=== PATIENT | female | born 1980 | race Caucasian/White ===

== ENCOUNTER 2025-01-05 16:59 | Emergency (ER) | payer BC, SELFPAY ==
--- OUTSIDE RECORDS SUMMARY | 2025-01-05 17:01 | XMS_ITS | Clinical Summary ---
Author Organization [employer] Address [address] [place] [id number] Care Team Providers Care [employer] Molder Name Role Phone Minh Zamarripa MD Unavailable [phone] Yris Foster DO Primary Care Provider [phone] Allergies No known active allergies Medications albuterol (PROVENTIL) 0.083 % neb solutionIndicati ons:Moderate persistent asthma without complication (HC),Post-viral reactive airway disease (HC) Inhale 3 mL (2.5 mg) via a nebulizer every 4 hours if needed for Cough 1st choice, Shortness of Breath 1st choice or Wheezing 1st choice. Dispense 1box 1 mL 1 09/28/20 21 Active ipratropium (ATROVENT NASAL) 42 mcg (0.06 %) nasal spray USE 2 SPRAYS IN EACH NOSTRIL TWICE DAILY DIRECTED 04/10/20 23 Active albuterol HFA (PRO-AIR; VENTOLIN; PROVENTIL) 90 mcg/actuation inhalerIndicatio ns:Moderate persistent asthma without complication (HC) Inhale 2 Puffs by mouth every 4 hours if needed for Shortness of Breath 1st choice or Wheezing 2nd choice. For breathing; use with spacer to get a full dose 1 Each 1 01/02/20 24 Active inhalational spacing deviceIndication s:Exacerbation of asthma, unspecified asthma severity, unspecified whether persistent (HC) For home use. Use with albuterol 1 Each 01/02/20 24 Active ascorbic acid/vitamin E/biotin (HAIR, SKIN, NAILS WITH BIOTIN ORAL) Take by mouth. Active metFORMIN (GLUCOPHAGE XR) 500 mg Extended-Release tabletIndication s:Obesity, Class II, BMI 35-39.9 Take 2 Tablets (1,000 mg) by mouth once daily. 180 Tablet 3 09/10/20 24 Active lisdexamfetamine (Vyvanse) 10 mg capsuleIndicatio ns:Attention deficit hyperactivity disorder (ADHD), unspecified ADHD type Take 1 Capsule (10 mg) by mouth once daily. 30 Capsule 09/16/20 24 Active ketoconazole 2 % creamIndications :Yeast dermatitis Apply topically to affected area(s) two times daily. Use until resolved. Then can use once a week for prevention if desired 60 g 3 09/16/20 24 Active levothyroxine 50 mcg tabletIndication s:Hypothyroidism (acquired) TAKE 1 TABLET(50 MCG) BY MOUTH BEFORE BREAKFAST 90 Tablet 1 01/06/20 25 Active escitalopram oxalate 20 mg tabletIndication s:Anxiety Take 1 Tablet (20 mg) by mouth once daily in the morning. 90 Tablet 1 01/06/20 25 Active levothyroxine (SYNTHROID) 50 mcg tabletIndication s:Hypothyroidism (acquired) Take 1 Tablet (50 mcg) by mouth once daily. 90 Tablet 3 09/10/20 24 2024 Discontinued escitalopram oxalate (LEXAPRO) 20 mg tabletIndication s:Anxiety Take 1 Tablet (20 mg) by mouth once daily in the morning. 90 Tablet 3 09/10/20 24 2024 Discontinued(R eorder (E-cancel not sent)) Hospital, Clinic, or Other Facility Administered Medication Ordered Dose Route Frequency Start Date End Date Status levonorgestrel (MIRENA) 20 mcg/24 hours (8 yrs) 52 mg intrauterine device (IUD) 1 DeviceIndications:Encounter for IUD removal and reinsertion 1 Device IU Q 8 YEARS 08/14/2023 Active Active Problems Problem Noted Date Diagnosed Date High-risk human papillomavir us (HPV) DNA detected in cervical specimen, not type 16 or 18 07/15/2023 Overview (09/18/2024): 07/2023 NIL/HPV+, HPV 16/18 negative 08/2024 NIL/HPV+, HPV 16/18 negative Plan: Colposcopy Raynaud's syndrome 06/04/2023 Overview (06/04/2023): Right index Even got an ulcer All [facility] had to offer was a nerve surgery to stop her from feeling the pain Attention deficit hyperactiv ity disorder (ADHD), predominantly hyperactive type 05/15/2019 Depression, major, single episode, moderate 12/14 Hypothyroidism 12/19/2017 Chronic lower back pain 08/31/2015 CT positive 08/31/2015 Moderate persistent asthma without complication 05/10/2015 Resolved Problems Problem Noted Date Diagnosed Date Resolved Date Undifferentiated connective tissue disease 08/31/2015 08/10/2024 Encounters Date Type Department Care Team Description 01/05/2025 Refill [facility] Nurse Triage Yris Foster DO Refill Request (Escitalopram ) 01/05/2025 Nurse Triage [facility] [address] [place] [address] Yris Foster DO Back Pain 01/05/2025 Refill [facility] [address] [place] [address] Yris Foster DO Refill Request (Levothyroxine) from Last 3 Months Immunizations Immunization Administration Dates Next Due COVID-19 vaccine ([employer] 30mcg/0.3mL) 12YO+ BIVALENT PF, MDV 12/20/2022 COVID-19 vaccine ([employer] 30mcg/0.3mL) PF, MDV 10/21/2021,01/29/2021,01/08/2021 Hepatitis A, Unspecified 02/01/2007 Hepatitis B, Unspecified 10/15/2005 Influenza Virus, Unspecified 01/18/2007 Influenza, IIV4 07/02/2023 MMR 02/14/1993,03/06/1983 Pneumococcal Conj 20-valent (Prevnar 20) 023 Td (Age >=7 Years) 01/18/2007 Td, Preservative Free (age >= 7 Years) 3 Typhoid (oral) 02/01/2007 Family History Medical History Relation Name Comments Diabetes Maternal Grandfather Arthritis Maternal Grandmother Other Maternal Grandmother argelia ons Other Mother Lupus Cancer-breast No Family History Cancer-ovarian No Family History Relation Name Status Comments Maternal Grandfather Maternal Grandmother Mother Social History Tobacco Use Types Packs/Day Years Used Date Smoking Tobacco: Never Smokeless Tobacco: Never Tobacco Cessation:Counseling Given: Not Answered Alcohol Use Standard Drinks/Week Comments Yes 2 (1 standard drink = 0.6 oz pur e alcohol) PHQ-2 Answer Date Recorded PHQ-2 TOTAL SCORE 3 09/10/2024 Social Connections Answer Date Recorded Do you often feel lonely or isolated from those around you? 0 08/07/2024 Alcohol Use Answer Date Recorded How often do you have a drink containing alcohol ? 2 12/20/2022 How many drinks containing a lcohol do you have on a typical day when you are drinking? 0 12/20/2022 How often do you have five or more drinks on one occasion? 0 12/20/2022 Financial Resource Strain Answer Date R ecorded Difficulty of Paying Living Expenses 3 08/07/2024 Difficulty of Paying Living Expenses Not on file 08/07/2024 Food Insecurity Answer Date Recorded Do you worry your food will run out before you are able to buy more? 1 08/07/2024 Transportation Needs Answer Date Record ed Does lack of transportation keep you from medica l appointments? 1 08/07/2024 Does lack of transportation keep you from work, meetings or getting things that you need? 1 08/07/2024 Housing Stability Answer Date Recorded What is your housing situation today? 1 08/07/2024 Utilities Answer Date Recorded Do you have trouble paying f or utilities (for example, heat, electricity, water, phone)? 1 08/07/2024 Comments No Sex and Gender Information Value Date Recorded Sex Assigned at Not on file Legal Sex Female 10:48 AM CDT Gender Identity Not on file Sexual Orientation Not on file Occupation Industry Job Start Date Job End Date Not on file Not on file Not on file Not on file Obstetrics History Last Filed Vital Signs Vital Sign Reading Time Taken Comments Blood Pressure 121/72 10/01/2024 2:05 PM TRIAL ATTORNEY Pulse 85 10/01/2024 2:05 PM TRIAL ATTORNEY Temperature 36.8 C (98.3 F) 12/13/2018 9:39 AM TRIAL ATTORNEY Respiratory Rate 16 08/31/2015 1:50 PM TRIAL ATTORNEY Oxygen Saturation 98% 09/16/2024 2:53 PM TRIAL ATTORNEY Inhaled Oxygen Concentration - - Weight 122.4 kg (269 lb 12.8 oz) 09/16/2024 2:53 PM TRIAL ATTORNEY Height 166.4 cm (5' 5.5) 09/10/2024 10 :55 AM TRIAL ATTORNEY Body Mass Index 44.21 09/10/2024 10:55 AM TRIAL ATTORNEY Plan of Treatment Upcoming Encounters Date Type Department Care Team (Late st Contact Info) Description 01/06/2025 9:40 AM CDT Office Visit [facility] [address] [place] [address] Kali Hagen MD [address] [place] [address] Health Maintenance Due Date Last Done Comments Tdap 02/27/1992 COVID-19 vaccine series ( season) 2024 12/20/2022, 10/21/2021, 01/29/2021, Additional history exists Influenza Vaccine (#1) 2024 07/02/2023, 2006 BMI (ht and wt on same day) for age 18+ 09/10/2025 09/10/2024, 08/14/2023, 05/16/2019, Additional history exists Depression screening for age 12+ 09/10/2025 09/10/2024, 08/14/2023, 12/05/2022, Additional history exists Pap test for age 21-65 10/01/2025 (Verified in Care Everywhere or Patient Record), 09/10/2024, 09/10/2024, Additional history exists Tetanus booster 12/20/2032 12/20/2022, 01/18/2007 Pneumococcal series for age 6-49 Completed 12/21/19 23 HIV for age 15-65 Completed 08/24/2023, , 05/25/2015 Hepatitis C screening for ag e 18-79 Completed 08/24/2023, 12/26/2022, 05/25/2015 Procedures Procedure Name Priority Date/Time Associated Diagnosis Comments HPV HIGH RISK Routine 09/10/2024 12:53 PM TRIAL ATTORNEY Cervical cancer screening ANTI HIV 1/2 Routine 08/24/2023 2:16 PM TRIAL ATTORNEY Screen for STD (sexually transmitted disease) ANTI HCV Routine 08/24/2023 2:16 PM TRIAL ATTORNEY Screen for STD (sexually transmitted disease) from Last 3 Months or Most Recently Relevant to Health Maintenance Results * (ABNORMAL) HPV HIGH RISK (09/10/2024 12:53 PM TRIAL ATTORNEY) TYPE 16 Negative Negative 09/15/2024 11:19 AM TRIAL ATTORNEY [facility] TYPE 18 Negative Negative 09/15/2024 11:19 AM TRIAL ATTORNEY [facility] OTHER HIGH RISK TYPES Positive(A) Negative 09/15/2024 11:19 AM TRIAL ATTORNEY [facility] Other (Cervical) Non-Blood / Unknown 09/10/2024 12:53 PM TRIAL ATTORNEY 09/12/2024 10:14 AM TRIAL ATTORNEY Narrative [facility] - 09/15/2024 11:19 AM TRIAL ATTORNEY Specimen is positive for the DNA of any one of, or combination of, the following high risk HPV types: 31, 33, 35, 39, 45, 51, 52, 56, 58, 59, 66, 68. HPV types 16 and 18 DNA were undetectable or below the pre-set threshold. Methodology: Mani Ivelisse 4800 HPV Test Yris Foster DO MICROBIOLOGY Final Resu lt [facility] [address] [place] [address], * ANTI HCV (08/24/2023 2:16 PM TRIAL ATTORNEY) HEPATITIS C ANTIBODY Non-Reacti ve Non-React mercedes 08/25/2023 4:37 AM TRIAL ATTORNEY [facility] Comment:Please note, per www .CDC.gov: If a patient is known to be at high risk of HCV infection, or is symptomatic, and the physician's suspicion of HCV infection is high, HCV RNA testing is often employed and is of diagnostic value, even after an initial negative anti-HCV test result. Blood BLOOD SPECIMEN / Unknown Butterfly / Unknown 08/24/2023 2:16 PM TRIAL ATTORNEY 08/24/2023 2:17 PM TRIAL ATTORNEY Yris Foster DO SEND OUTS Final Resu lt Performing Organization Address City/[facility]/ZIP Co de Phone Number [facility] [address] [place] [id number], [place] * ANTI HIV 1/2 (08/24/2023 2:16 PM TRIAL ATTORNEY) HIV-1/HIV-2 SCREEN Non-Reacti ve Non-Reacti ve 08/24/2023 9:24 PM TRIAL ATTORNEY [facility] Comment:HIV-1 p24 and HIV-1/ HIV-2 Ab Not Detected. Blood BLOOD SPECIMEN / Unknown Butterfly / Unknown 08/24/2023 2:16 PM TRIAL ATTORNEY 08/24/2023 2:17 PM TRIAL ATTORNEY Yris Foster DO SEND OUTS Final Resu lt Performing Organization Address [facility]/ZIP Co de Phone Number [facility] [address] [place] [address], from Last 3 Months or Most Recently Relevant to Health Maintenance Insurance [id number] [place] [address] [facility] Care Teams Automobile Carpets Molder Relationship Specialty Start Date End Date Yris Foster DO [address] [place] [address] PCP - General Family Practice 02/07/22 Minh Zamarripa MD [address] [facility] [address] [place] [address] Rheumatology Rheumatology 05/25/15
[2025-01-05 17:05] VITALS: BP 133/81; PULSE 80; RESP 16; TEMP 36.3; O2SAT 96; BMI 45.1
--- NOTE | 2025-01-05 17:13 | ED.GENADULT ---
HPI - General Adult General Date Seen: 01/05/25 Chief complaint: Back Injury/Pain Stated complaint: Back pain Time Seen by Provider: 01/05/25 17:13 History of Present Illness HPI narrative: 44-year-old female presenting to the ER today with concern for back pain. We do not have any previous medical records for her here in the [facility]. There are records the [employer] system. According to those records she has a past medical history of Raynaud's disease, positive CT, asthma, depression, ADHD, hypothyroidism, and chronic low back pain. Medication list from [employer] includes Albuterol Lexapro Ipratropium Levothyroxine Vyvanse Metformin [facility] she had phone calls today to the clinic requesting refills of her escitalopram and levothyroxine. She also called [facility] triage line requesting an appointment for her low back pain. [facility] triage nurse for back pain and she was instructed to come to the emergency department. History from the patient is that about 3 3 weeks ago she was at the [employer]. She had to hold her head and neck and back and very uncomfortable position for a while 1st while they were chamfer pulling her hair in a special sink and 2nd doing work on her eyebrows. She knew she was in an uncomfortable position but she held it anyway while she was at the [employer]. Since then she has been having pain in a couple of different locations. Her primary area of pain isn't located in her lower lumbar spine and across her posterior pelvis. It is a bit worse on the left than on the right. It sounds like it has been present pretty much every day since she went to the [employer] but is a began getting worse. Sometimes it the pain also radiates like an electric shock down her left buttock and down to her left lateral lower leg. Sometimes it also radiates down into her right buttock but not all the way down to her lower right leg. Sometimes she feels like her legs get weak. She also notes that sometimes she feels like she is having trouble with urination where she has to urinate frequently and sometimes she is incontinent of urine. Incontinence has been a previous problem for her but has been worse for the past couple of weeks. Bowel movements have been normal. No fevers. She has had occasional back pains in the past but has never had to go to the doctor. No previous lumbar spine surgeries. She also has sometimes electric shock like pain in the back of her neck and the back of her scalp. No fevers or chills. No chest pain. No trouble breathing. Related Data Home Medications ?Medication ?Instructions ?Recorded ?Confirmed escitalopram oxalate 20 mg tablet 20 mg PO DAILY 01/05/25 01/05/25 levothyroxine 50 mcg tablet 50 mcg PO DAILY 01/05/25 01/05/25 metformin 500 mg tablet,extended 500 mg PO BID 01/05/25 01/05/25 release 24 hr Previous Rx's ?Medication ?Instructions ?Recorded cyclobenzaprine 10 mg tablet 10 mg PO TID PRN muscle spasm #10 01/05/25 tabs hydrocodone 5 mg-acetaminophen 325 1 - 2 tab PO Q4-6H PRN pain #10 01/05/25 mg tablet tabs methylprednisolone 4 mg tablets in See Rx Instructions PO .COMPLEX 01/05/25 a dose pack (Medrol (Zeb)) #21 ea ondansetron 4 mg disintegrating 4 mg PO Q8H PRN nausea and 01/05/25 tablet vomiting #10 tabs Allergies Allergy/AdvReac Type Severity Reaction Status Date / Time No Known Drug Allergies Allergy Verified 01/05/25 17:09 [facility] Social History Smoking Status: Never smoker How often do you have a drink containing alcohol: never AUDIT-C Alcohol total score: 0 Non-prescribed substance use: denies use service: No Exam Narrative: Exam Narrative: Constitutional: Appears well-developed. Heavyset.. Alert. Conversant, very polite Non toxic. HENT: Head: Atraumatic. Nose: Nose normal. Mouth/Throat: Oral mucosa is clear and moist. no trismus. Pharynx normal. Eyes: Conjunctivae normal. EOM normal. Pupils equal, round, and reactive to light. No scleral icterus. Neck: Normal range of motion. Neck supple. No tracheal deviation present. Posteriorly she has no midline step-off. No point tenderness. Cardiovascular: Normal rate, regular rhythm. No gallop. No friction rub. No murmur heard. Symmetric radial artery pulses Pulmonary/Chest: Effort normal. No stridor. No respiratory distress. No wheezes. No rales. No rhonchi . No tenderness. Abdominal: Soft. Bowel sounds normal. No distension. No mass. No tenderness. No rebound. No guarding. Musculoskeletal: Inspection of her thoracic and lumbar spine is normal. She is endorsing fairly diffuse lumbar spine pain, more in the lower lumbar in span than the upper. There is no point tenderness or step-off. No crepitus. No redness. No bruising. No rash. Pelvis is stable. RUE: Normal range of motion. No tenderness. No deformity LUE: Normal range of motion. No tenderness. No deformity RLE: Normal range of motion. No edema. No tenderness. No deformity LLE: Normal range of motion. No edema. No tenderness. No deformity Neurological: Alert and oriented to person, place, and time. Normal strength. CN II-VII intact. No sensory deficit. GCS eye subscore is 4. GCS verbal subscore is 5. GCS motor subscore is 6. Normal coordination Sensory: Normal light touch sensation bilaterally on the anteromedial thigh (L3), medial malleolus (L4), dorsal first web space (L5), lateral malleolus (S1). Strength: 5/5 strength hip flexors (L3) on the right and left 5/5 strength in the quadriceps (L4) on the right and left 5/5 strength in the tibialis anterior 5/5 strength in the EHL (L5) on the right and left 5/5 strength in the gastrocnemius (S1) on the right and left 5/5 strength in the hamstring on the right and left DTRs: symmetric in the patella (2/4) Negative straight leg raise bilaterally. Skin: Skin is warm and dry. No rash noted. No pallor. Normal capillary refill. Psychiatric: Normal mood. Normal affect. Very polite. She is frustrated about being sent to the ER by the [employer] phone triage line. She just wanted to get an appointment with her doctor's office for her back. Const: Vital Signs, click to edit/add: Vital Signs - 24 hr 01/05/25 17:05 Temperature 97.3 F L Pulse Rate [Pulse Oximeter] 80 Respiratory Rate 16 Blood Pressure [Ri ght Upper Arm] 133/81 Pulse Oximetry 96 Oxygen Delivery Me thod Room Air Course Vital Signs Vital signs: Initial Vital Signs Temperature 97.3 F L 01/05/25 17:05 Temperature Source Temporal Artery Scan 01/05/25 17:05 Pulse Rate 80 01/05/25 17:05 Respiratory Rate 16 01/05/25 17:05 Blood Pressure 133/81 01/05/25 17:05 Blood Pressure Mean 98 01/05/25 17:05 Blood Pressure Position Sitting 01/05/25 17:05 Pulse Oximetry 96 01/05/25 17:05 Oxygen Delivery Method Room Air 01/05/25 17:05 Vital Signs Temperature 97.3 F L 01/05/25 17:05 Pulse Rate 80 01/05/25 17:05 Respiratory Rate 16 01/05/25 17:05 Blood Pressure 133/81 01/05/25 17:05 Pulse Oximetry 96 01/05/25 17:05 Oxygen Delivery Method Room Air 01/05/25 17:05 Temperature 97.3 F L 01/05/25 17:05 Pulse Rate 80 01/05/25 17:05 Respiratory Rate 16 01/05/25 17:05 Blood Pressure 133/81 01/05/25 17:05 Pulse Oximetry 96 01/05/25 17:05 Oxygen Delivery Method Room Air 01/05/25 17:05 Medical Decision Making MDM Narrative Medical decision making narrative: This patient presented with back pain. Broad differential considered. The patient did not sustain any trauma, therefore x-rays are not necessary due to the low likelihood of fracture or subluxation. She did report on the phone to the [facility] triage system that she was having some urinary difficulty. On my exam she has no focal neurologic deficits. She has intact sensation in both legs. I did not check rectal tone formally but she does denies any stool incontinence. She is able to urinate normally and has a normal postvoid residual bladder volume of 30 mL. No red flag symptoms to suggest CT and/or MRI is indicated at this point. The patient has not had a fever, saddle/perineal anesthesia, bilateral foot numbness, or bowel or bladder dysfunction. There is no clinical evidence of cauda equina syndrome, discitis, spinal/epidural space hematoma or epidural abscess. MRI is not available here in my ER tonight and at this point I do not think that there is clinical grounds that mandates emergent transfer to another ER for immediate imaging tonight. With her reported episodes of pain radiating down her left lateral leg am suspicious for a probable left L5 or S1 lumbar radiculopathy. I do think since she has had symptoms ongoing for the past few weeks, if she is not improving in the next few days she may need MRI.. Urinalysis was obtained and is abnormal only for leukocyte esterase. In discussed with the patient we will await urine culture before we initiate any empiric antibiotics. The patient will be discharged with pain medications to use as directed. Ice or heat to the back and stretching exercises. No heavy lifting, bending or twisting. Return if increasing pain, numbness, weakness, or bowel or bladder dysfunction. The patient was advised to schedule follow-up with their primary doctor within 2-3 days to re-assess symptoms. Return precautions reviewed and questions answered. Prescriptions for Whiteside, Flexeril, for symptomatic relief. Prescription for Medrol Dosepak. Opiate precautions reviewed. Also Zofran for to use if needed for nausea. Patient is already schedule an appointment with her PCP Clinic and [facility] tomorrow. Lab Data Labs: Lab Results 01/05/25 Range/Units 17:48 Urine Color Yellow (Yellow) Urine Appearance Clear (Clear) Urine pH 6.0 (5.0-8.5) Ur Specific [place] 1.015 (1.000-1.030) Urine Protein Negative (Negative) Urine Glucose (UA) Negative (Negative) Urine Ketones 1+ A (Negative) Urine Blood 1+ A (Negative) Urine Nitrite Negative (Negative) Urine Bilirubin Negative (Negative) Urine Urobilinogen 0.2 (0.2-1.0) Ur Leukocyte Esterase 1+ A (Negative) Urine RBC 0-2 (0-2) Urine WBC 2-5 (0-5) Ur Squamous Epith Cells Few (None-Few) Urine Bacteria Few A (None) Urine HCG, Qual Negative (Negative) Discharge Plan Discharge Clinical Impression: Left lumbar radiculopathy, Acute neck pain Patient Disposition: Home, Self-Care Condition: Stable Instructions: Acute Low Back Pain (ED), Lumbar Radiculopathy (ED), Acute Neck Pain (ED) Additional Instructions: As we discussed, please follow-up with your doctors at the [facility] clinic tomorrow for a checkup. Your doctors Nirav may be able to help you arrange an outpatient MRI, as needed. Please come back to the ER right away if you have worsening symptoms especially worsening weakness or numbness in your legs, further disturbance of bowel or bladder function, high fever, numbness or weakness down your arms. Use the prescription muscle relaxers and pain killers as needed but be careful because they can cause dizziness, drowsiness, and can be addictive. Start on the oral steroid to help treat your back. The steroid might help reduce swelling if you have a bulging disc and this could help her symptoms get better. Prescriptions: New cyclobenzaprine 10 mg tablet 10 mg PO TID PRN (Reason: muscle spasm) Qty: 10 0RF hydrocodone-acetaminophen 5-325 mg tablet 1 - 2 tab PO Q4-6H PRN (Reason: pain) Qty: 10 0RF ondansetron 4 mg tablet,disintegrating 4 mg PO Q8H PRN (Reason: nausea and vomiting) Qty: 10 0RF methylprednisolone [Medrol (Zeb)] 4 mg tablets,dose pack See Rx Instructions .ROUTE .COMPLEX Qty: 21 0RF Rx Instructions: for 6 days No Action levothyroxine 50 mcg tablet 50 mcg PO DAILY metformin 500 mg tablet extended release 24 hr 500 mg PO BID escitalopram oxalate 20 mg tablet 20 mg PO DAILY Follow Up/Referrals: Provider,Not a Local [Primary Care Provider] - Stand Alone Forms: [employer] Info Instructions
--- OUTSIDE RECORDS SUMMARY | 2025-01-05 17:59 | XMS_ITS | Clinical Summary ---
Author Organization [facility] Address [address] [place] [id number] Care Team Providers Care Political Researcher Name Role Phone Minh Zamarripa MD Unavailable [phone] Yris Foster DO Primary Care Provider [phone] Allergies No known active allergies Medications albuterol [...] Right index Even got an ulcer All [place] had to offer was a nerve surgery [...] Type Department Care Team Description 01/05/2025 Refill [facility] Nurse Triage Yris Foster DO Refill Request (Escitalopram ) 01/05/2025 Nurse Triage [facility] [address] [place] [address] Yris Foster DO Back Pain 01/05/2025 Refill [facility] [address] [place] [address] Yris Foster DO Refill Request (Levothyroxine) from Last 3 Months Immunizations Immunization Administration Dates Next Due COVID-19 vaccine (Million-2-1-Bio NTech 30mcg/0.3mL) 12YO+ BIVALENT PF, MDV 12/20/2022 COVID-19 vaccine (Million-2-1-Bio NTech 30mcg/0.3mL) PF, MDV 10/21/2021,01/29/2021,01/08/2021 Hepatitis A, [...] Comments Blood Pressure 121/72 10/01/2024 2:05 PM [employer] Pulse 85 10/01/2024 2:05 PM [employer] Temperature 36.8 C (98.3 F) 12/13/2018 9:39 AM [employer] Respiratory Rate 16 08/31/2015 1:50 PM [employer] Oxygen Saturation 98% 09/16/2024 2:53 PM [employer] Inhaled Oxygen Concentration - - Weight 122.4 kg (269 lb 12.8 oz) 09/16/2024 2:53 PM [employer] Height 166.4 cm (5' 5.5) 09/10/2024 10 :55 AM [employer] Body Mass Index 44.21 09/10/2024 10:55 AM [employer] Plan of Treatment Upcoming Encounters Date Type Department Care Team (Late st Contact Info) Description 01/06/2025 9:40 AM CDT Office Visit [facility] [address] [place] [address] Kali Hagen MD [address] [place] [address] Health Maintenance Due Date Last Done Comments [...] HPV HIGH RISK Routine 09/10/2024 12:53 PM [employer] Cervical cancer screening ANTI HIV 1/2 Routine 08/24/2023 2:16 PM [employer] Screen for STD (sexually transmitted disease) ANTI HCV Routine 08/24/2023 2:16 PM [employer] Screen for STD (sexually transmitted disease) from Last 3 Months or Most Recently Relevant to Health Maintenance Results * (ABNORMAL) HPV HIGH RISK (09/10/2024 12:53 PM [employer]) TYPE 16 Negative Negative 09/15/2024 11:19 AM [employer] [facility] TYPE 18 Negative Negative 09/15/2024 11:19 AM [employer] [facility] OTHER HIGH RISK TYPES Positive(A) Negative 09/15/2024 11:19 AM [employer] [facility] Other (Cervical) Non-Blood / Unknown 09/10/2024 12:53 PM [employer] 09/12/2024 10:14 AM [employer] Narrative [facility] - 09/15/2024 11:19 AM [employer] Specimen is positive for the DNA of any one of, or combination of, the following high risk HPV types: 31, 33, 35, 39, 45, 51, 52, 56, 58, 59, 66, 68. HPV types 16 and 18 DNA were undetectable or below the pre-set threshold. Methodology: Mani Ivelisse 4800 HPV Test Yris Foster DO MICROBIOLOGY Final Resu lt [facility] [address] [place] [address], * ANTI HCV (08/24/2023 2:16 PM [employer]) HEPATITIS C ANTIBODY Non-Reacti ve Non-React mercedes 08/25/2023 4:37 AM [employer] [facility] Comment:Please note, per www .CDC.gov: If a patient is known to be at high risk of HCV infection, or is symptomatic, and the physician's suspicion of HCV infection is high, HCV RNA testing is often employed and is of diagnostic value, even after an initial negative anti-HCV test result. Blood BLOOD SPECIMEN / Unknown Butterfly / Unknown 08/24/2023 2:16 PM [employer] 08/24/2023 2:17 PM [employer] Yris Foster DO SEND OUTS Final Resu lt Performing Organization Address City/[facility]/ZIP Co de Phone Number [facility] [address] [place] [id number], [place] * ANTI HIV 1/2 (08/24/2023 2:16 PM [employer]) HIV-1/HIV-2 SCREEN Non-Reacti ve Non-Reacti ve 08/24/2023 9:24 PM [employer] [facility] Comment:HIV-1 p24 and HIV-1/ HIV-2 Ab Not Detected. Blood BLOOD SPECIMEN / Unknown Butterfly / Unknown 08/24/2023 2:16 PM [employer] 08/24/2023 2:17 PM [employer] Yris Foster DO SEND OUTS Final Resu lt Performing Organization Address [facility]/ZIP Co de Phone Number [facility] [address] [place] [address], from Last 3 Months or Most Recently Relevant to Health Maintenance Insurance [phone] [place] [address] [facility] Care Teams Political Researcher Relationship Specialty Start Date End Date Yris Foster DO [address] [place] [address] PCP - General Family Practice 02/07/22 Minh Zamarripa MD [address] [facility] [address] [place] [address] Rheumatology Rheumatology 05/25/15
[2025-01-05 18:08] LABS: Appearance Urine Clear (Clear); Bilirubin Urine Negative (Negative); Blood Urine 1+ (Negative); Color Urine Yellow (Yellow); Glucose Urine Negative (Negative); Ketones Urine 1+ (Negative); Leukocyte Esterase Urine 1+ (Negative); Nitrite Urine Negative (Negative); Protein Urine Negative (Negative); Specific Gravity Urine 1.015 (1.000-1.030); Urobilinogen Urine 0.2 (0.2-1.0)
[2025-01-05 18:37] LABS: Bacteria Urine Few; RBC Urine 0-2 (0-2); Squamous Epithelial Cell Urine Few (None-Few); Ur HCG Qualitative* Negative (Negative)
== END 2025-01-05 19:15 | disposition home or self-care (01) ==
PROVIDERS: Emergency Provider Emergency Medicine
DX: M54.16 Radiculopathy, lumbar region (principal); M54.2 Cervicalgia
CPT/HCPCS: 81001; 81025; 87086; 99283